=== PATIENT | male | born 1945 | race Caucasian/White ===

== ENCOUNTER 2021-11-10 05:42 | Day surgery (SDC) | payer MEDICARE ==
[2021-11-10] MEDS ORDERED: Lidocaine 1% MPF 2 ML VIAL ONE (06:47)
[2021-11-10] MEDS ORDERED: PROPOFOL 20 ML ONE (07:19)
[2021-11-10] MEDS ORDERED: Lidocaine 2% MPF 10 ML AMP (For Epidural Use) ONE (07:20)
== END 2021-11-10 08:35 | disposition home or self-care (01) ==
LOC: CSHSDC 05:42
PROVIDERS: ATTEND Surgery
PROC: 0DB68ZZ Excision of Stomach, Via Natural or Artificial Opening Endoscopic (ICD-10-PCS; principal; 2021-11-10)
DX: K21.9 Gastro-esophageal reflux disease without esophagitis (principal); K44.9 Diaphragmatic hernia without obstruction or gangrene; K25.9 Gastric ulcer, unspecified as acute or chronic, without hemorrhage or perforation; Z79.899 Other long term (current) drug therapy; I10 Essential (primary) hypertension
CPT/HCPCS: 88305; J2704

== ENCOUNTER 2022-10-01 17:25 | Emergency (ER) | payer MEDICARE ==
[2022-10-01 17:52] LABS: #Eosinphils 0.2 10x3/uL (0.0-0.5); #Monocytes 0.7 10x3/uL (0.0-1.1); #Neutrophils 3.4 10x3/uL (1.5-8.4); %Basophils 0.6 % (0.0-2.0); %Eosinophils 3.7 % (0.0-6.0); %Lymphocytes 16.3 % (18.0-47.0); %Monocytes 12.6 % (0.0-10.0); %Neutrophils 66.6 % (40.0-75.0); Mean Corpuscular HGB CONC 34.7 g/dL (32.0-36.0); Mean Corpuscular Volume 94.9 fl (81.2-95.1); Mean Platelet Volume 9.6 fl (7.4-10.4); Platelet Count 151 10x3/uL (150-450); RBC Distribution Width 13.1 % (11.5-14.5); Red Blood Cell (RBC) Count 4.55 10x6/uL (4.32-5.72); White Blood Cell (WBC) Count 5.1 10x3/uL (3.5-10.5)
[2022-10-01 18:03] LABS: ALT (SGPT) 30 U/L (8-55); AST (SGOT) 29 U/L (5-34); Albumin 4.1 g/dL (3.4-4.8); Alkaline Phosphatase 55 U/L (40-110); Anion Gap 14 mmol/L (10-20); BUN (Urea Nitrogen) 16 mg/dL (8.4-25.7); Bilirubin, Total 1.1 mg/dL (0.2-1.2); Calc. Creatinine Clearance 0 mL/min (70-130); Calcium 9.4 mg/dL (7.8-10.44); Carbon Dioxide 25 mmol/L (23-31); Chloride 103 mmol/L (98-107); Estimated GFR 83; Globulin 2.9 g/dL (2.4-3.5); Glucose 96 mg/dL (83-110); Potassium 3.5 mmol/L (3.5-5.1); Sodium 138 mmol/L (136-145)
[2022-10-01 18:05] LABS: PTT 25.4 sec (22.0-33.0); Prothrombin Time 11.3 sec (9.5-12.1)
== END 2022-10-01 19:09 | disposition home or self-care (01) ==
LOC: CSHERS 17:25
DX: I47.1 Supraventricular tachycardia (principal); I10 Essential (primary) hypertension; E78.00 Pure hypercholesterolemia, unspecified
CPT/HCPCS: 71045; 80053; 84484; 85025; 85610; 85730; 93005

== ENCOUNTER 2025-10-23 14:46 | Emergency (ER) | payer MEDICARE ==
[2025-10-23 15:15] LABS: #Basophils 0.03 10x3/uL (0.0-0.2); #Eosinophils 0.18 10x3/uL (0.0-0.5); #Monocytes 0.60 10x3/uL (0.0-1.1); #Neutrophils 4.20 10x3/uL (1.5-8.4); %Basophils 0.5 % (0.0-2.0); %Eosinophils 2.9 % (0.0-6.0); %Lymphocytes 19.0 % (18.0-47.0); %Monocytes 9.7 % (0.0-10.0); %Neutrophils 67.7 % (40.0-75.0); Hematocrit 42.2 % (38.8-50.0); Hemoglobin 14.8 g/dL (13.5-17.5); Mean Corpuscular Hemoglobin 33.2 pg (27.0-33.0); Mean Corpuscular Volume 94.6 fL (81.2-95.1); Platelet Count 180 10x3/uL (150-450); Red Blood Cell (RBC) Count 4.46 10x6/uL (4.32-5.72); White Blood Cell (WBC) Count 6.20 10x3/uL (3.5-10.5)
[2025-10-23 15:31] LABS: ALT (SGPT) 27 U/L (Less than 45); AST (SGOT) 37 U/L (11-34); Albumin 4.0 g/dL (3.1-4.5); Alkaline Phosphatase 75 U/L (40-110); Anion Gap 17 mmol/L (10-20); BUN (Urea Nitrogen) 18 mg/dL (8.4-25.7); Bilirubin, Total 0.6 mg/dL (0.3-1.2); Calc. Creatinine Clearance 0 mL/min (70-130); Calcium 8.8 mg/dL (7.8-10.44); Carbon Dioxide 18 mmol/L (23-31); Chloride 105 mmol/L (98-107); Globulin 2.8 g/dL (2.4-3.5); Glucose 163 mg/dL (83-110); Potassium 3.3 mmol/L (3.5-5.1); Sodium 137 mmol/L (136-145)
[2025-10-23 15:37] LABS: Troponin I Less than 0.010 ng/mL (< 0.028)
== END 2025-10-23 16:15 | disposition home or self-care (01) ==
LOC: CSHERS 14:46
DX: R07.89 Other chest pain (principal); R55 Syncope and collapse; E87.6 Hypokalemia; I10 Essential (primary) hypertension; E78.00 Pure hypercholesterolemia, unspecified; Z79.899 Other long term (current) drug therapy
CPT/HCPCS: 71045; 80053; 84484; 85025; 93005; 93010